=== PATIENT | female | born 1970 | race Caucasian/White ===

== ENCOUNTER 2023-04-18 06:18 | Emergency (ER) | payer BC, SELFPAY ==
[2023-04-18] VITALS (7 sets, daily range): BP systolic 128–149; BP diastolic 65–90; PULSE 103–112; RESP 14–20; TEMP 36.1–36.7; O2SAT 92–100
--- NOTE | ~2023-04-18 | US_ITS ---
EXAMINATION: US venous doppler LE RT DATE: 04/18/2023 09:14 INDICATION: Right lower limb pain and swelling TECHNIQUE: Canela scale images without and with compression and Doppler images of the right lower extre mity veins were obtained. COMPARISON: None FINDINGS: The right common femoral vein, profunda femoral vein, femoral vein, popliteal vein, and gre ater saphenous vein are patent. There is limited evaluation of the right posterior tibial and peronea l veins of the grossly no thrombosis is identified. IMPRESSION: 1. Patent right lower extremity veins. Grossly no evidence of deep venous thrombosis. Reviewed, dictated and finalized at location F. CART ATTENDANT IMPRESSION: 1. Patent right lower extremity veins. Grossly no evidence of deep venous throm bosis.
--- NOTE | 2023-04-18 06:54 | PC.NURSE ---
Patient states that he has a hx of cva and has weakness to right side. Patient states she does not have any sensation of numbness, tingling, or pins.
--- NOTE | 2023-04-18 07:17 | ECG_ITS ---
Measurements Intervals [place] Rate: 105 P: 56 IN: 160 QRS: -7 QRSD: 85 T: 75 QT: 357 QTc: 474 Interpretive Statements SINUS TACHYCARDIA LOW QRS VOLTAGE IN PRECORDIAL LEADS NONSPECIFIC ST & T-WAVE ABNORMALITY Electronically Signed On 04-19-2023 10:19:14 CONDITIONING COACH by Salvador Vivar M.D.
--- NOTE | 2023-04-18 07:37 | ED.GENADULT ---
HPI - General Adult General Chief complaint: Unspecified Stated complaint: Right sided pain Time Seen by Provider: 04/18/23 06:54 History of Present Illness HPI narrative: This is a 52-year-old female, with history of stroke resulting in right-sided deficits and complex pain syndrome, who presents to the emergency department complaining of pain in the right side of her body. She states she has chronic right lower extremity swelling, though has felt worsening pain in the past day. She has no other complaints at this time. Related Data Allergies Allergy/AdvReac Type Severity Reaction Status Date / Time vancomycin Allergy Swelling Verified 04/18/23 07:18 Review of Systems Review of Systems: CONSTITUTIONAL: Denies fever, chills, or sweats. CARDIOVASCULAR: Chronic right leg edema Denies chest pain, palpitations RESPIRATORY: Denies cough or dyspnea. GASTROINTESTINAL: Denies abdominal pain, nausea, vomiting, or diarrhea. GENITOURINARY: Denies dysuria or hematuria. SKIN: Denies rash or itching. MUSCULOSKELETAL: Chronic right-sided pain Denies back pain, joint pain NEUROLOGIC: Chronic right-sided weakness Denies headache, numbness, dizziness. PSYCHIATRIC: Denies anxiety or depression. [facility] Past Medical History Medical History Complex regional pain syndrome CVA (cerebrovascular accident) Surgical History Surgical History No significant past surgical history Social History Social History Smoking status: Never smoker Alcohol intake: never Substance use: never Exam Narrative: GENERAL: Well-appearing, well-nourished, appears uncomfortable HEAD: Normocephalic, atraumatic. EYES: PERRLA and EOMI. CHEST: Clear to auscultation. No respiratory distress. No wheezes rales or rhonchi HEART: tachycardic with regular rhythm. No murmur heard. Normal peripheral pulses. ABDOMEN: Soft, nontender, nondistended, normal active bowel sounds. EXTREMITIES: 2+ edema of the right lower extremity, no noted edema of the left lower extremity. The right leg is in a brace for foot drop. Normal range of motion. SKIN: erythema and small amount skin abrasion is noted over the sacrum, measuring approximately 7 cm in diameter consistent with stage I pressure ulcer. Skin otherwise warm, dry, no rash. NEURO: right-sided paralysis. Strength intact in the left upper and lower extremities. Alert and oriented x3. PSYCH: Normal mood and affect. Course Course Emergency Course: 12:15 - The patient's pain improved after morphine, pain dose ketamine and Toradol. Labs demonstrate mild anemia with hemoglobin of 11.2. Chemistries demonstrate mild hypokalemia with potassium of 3 but is otherwise unremarkable. Troponin negative. DVT ultrasound of the right lower extremity not concerning for DVT. I suspect the patient's pain is related to complex regional pain syndrome. Her exam is concerning stage I pressure ulcer. I discussed wound care management with her family. Will discharge with recommendation for primary care follow-up and possible wound care consultation. Discussed return and emergency precautions including signs/symptoms of cellulitis. The patient voiced understanding and is comfortable with the plan. All questions answered to her satisfaction. Vital Signs Vital signs: Vital Signs Temperature 97.0 F L 04/18/23 06:22 Pulse Rate 108 H 04/18/23 06:22 Respiratory Rate 20 04/18/23 06:22 Blood Pressure 128/74 04/18/23 06:22 Pulse Oximetry 98 04/18/23 06:22 Oxygen Delivery Room Air 04/18/23 06:22 Temperature 98.1 F 04/18/23 06:52 Pulse Rate 108 H 04/18/23 12:36 Respiratory Rate 20 04/18/23 12:36 Blood Pressure 148/65 H 04/18/23 12:36 Pulse Oximetry 99 04/18/23 12:36 Oxygen Delivery Room Air 04/18/23 06:22 Medical Decision Making
[2023-04-18] MEDS: MORPHINE SULFATE (*CRX) 4 MG/ML INJ IV PUSH ×2 (08:06→11:02)
[2023-04-18] MEDS: SODIUM CHLORIDE 0.9% IV 1,000 ML 999 ML IV CONT (08:07)
[2023-04-18 08:20] LABS: Basophils Percent Auto 0.4 % (0.2-1.2); Eosinophils Absolute Auto 0.1 K/mm3 (0-0.3); Eosinophils Percent Auto 1.1 % (0-4.4); Hematocrit 34.8 % (37.0-47.0); Hemoglobin 11.2 g/dL (12.0-15.0); Immature Granulocyte Absolute 0.01 K/mm3 (0.00-0.031); Immature Granulocyte Percent A 0.2 % (0-0.5); Lymphocytes Absolute Auto 0.93 K/mm3 (0.9-3.2); Lymphocytes Percent Auto 16.8 % (18.3-44.2); Mean Corpuscular HGB Conc 32.2 g/dl (32-36); Mean Corpuscular Hemoglobin 28.1 pg (26-34); Mean Corpuscular Volume 87.2 fl (80-100); Mean Platelet Volume 9.6 fl (7.4-10.4); Monocytes Absolute Auto 0.5 K/mm3 (0.1-0.6); Neutrophils Percent Auto 72.5 % (45.5-73.1); Platelet Count Result 271 k/mm3 (150-375); Red Blood Count 3.99 M/mm3 (4.2-5.4); Red Cell Distribution Width 12.3 % (11.5-14.5); White Blood Count 5.6 K/mm3 (4.5-10.0)
[2023-04-18 08:28] LABS: Alanine Aminotransferase 55 U/L (6-35); Albumin Level 3.8 g/dL (3.5-5.1); Alkaline Phosphatase 74 U/L (38-126); Anion Gap 10 mmol/L (8-16); Aspartate Amino Transferase 42 U/L (14-36); Bilirubin,Total 1.2 mg/dL (0.2-1.3); Blood Urea Nitrogen 43 mg/dL (7-17); Calcium 10.7 mg/dL (8.4-10.2); Carbon Dioxide 27 mmol/L (22-30); Chloride 102 mmol/L (98-107); Estimated CRCL calculation 72 ml/min; Estimated Glomerular Filt Rate 58; Glucose 127 mg/dL (65-110); Sodium 139 mmol/L (137-145)
[2023-04-18] MEDS: POTASSIUM CHLORIDE 20 MEQ PACKET (FOR LIQUID) 40 MEQ PO (08:38)
[2023-04-18 08:40] LABS: Troponin I < 0.012 ng/mL (0.000-0.034)
[2023-04-18] MEDS: KETAMINE HCL (*CRX) 500 MG/10 ML VIAL 20 MG IV PUSH (08:49)
--- NOTE | 2023-04-18 08:51 | PC.NURSE ---
u/s at bedside at this time
[2023-04-18] MEDS: KETOROLAC 30 MG/ML VIAL (*BKC) IV PUSH (11:02)
== END 2023-04-18 12:49 | disposition home or self-care (01) ==
PROVIDERS: Emergency Provider Preventive Medicine Aerospace Medicine
DX: G90.59 Complex regional pain syndrome I of other specified site (principal)
CPT/HCPCS: 36415; 80053; 84484; 85025; 93005; 93971; 96361; 96374; 96375; 96376; 99284; A9270; J1885; J2270; J7030

== ENCOUNTER 2024-01-13 12:55 | Emergency (ER) | payer OTHER, SELFPAY ==
--- NOTE | ~2024-01-13 | XR_ITS ---
EXAMINATION: XR shoulder RT min 2V DATE: 01/13/2024 14:44 INDICATION: Patient awoke with limited range of motion at the right shoulder and feeling similar to d uring a recent prior shoulder dislocation. TECHNIQUE: AP internally and externally rotated, AP oblique externally rotated and transscapular Y vi ews of the right shoulder were obtained. COMPARISON: None FINDINGS: Normal alignment. Partially visualized plate and screw fixation along the distal right humeral diaphy sis reportedly for recent fracture which is not included within the [id number]. No other fractures identified. Glenohumeral mild glenohumeral and acromioclavicular osteoarthritis. Visualized portions of the right lung are clear. Soft tissues are unremarkable. IMPRESSION: 1. Mild right glenohumeral and acromioclavicular osteoarthritis. No acute osseous abnormality. 2. Incompletely visualized plate and screw fixation of the distal right humeral diaphysis reportedly for recent fracture which is not included within the field of imaging. Reviewed, dictated and finalized at location A. IMPRESSION: 1. Mild right glenohumeral and acromioclavicular osteoarthritis. No acute osseo us abnormality. 2. Incompletely visualized plate and screw fixation of the distal right humeral diaphysis reportedly for recent fracture which is not included within the fiel d of imaging.
[2024-01-13 13:00] VITALS: BP 145/63; PULSE 80; RESP 16; TEMP 36.5; O2SAT 98
--- NOTE | 2024-01-13 15:07 | ED.UPPEXIN ---
HPI - Extremity Injury (Upper) General Chief Complaint: Extremity Injury, Upper Stated Complaint: R shoulder pain Time Seen by Provider: 01/13/24 15:07 History of Present Illness HPI narrative: 53-year-old female presents to the emergency department with concerns for right shoulder dislocation. Patient states she woke up this morning and noticed a deformity to her right shoulder which prompted her to come to the ED. She was seen a few weeks ago in our ER for a right shoulder dislocation which was reduced. It was complicated by a humeral fracture. Patient went to [facility] and had a surgery performed 10 days ago for this humeral fracture. She has been in a sling since. She denies injury or trauma to her right shoulder. Related Data Allergies Allergy/AdvReac Type Severity Reaction Status Date / Time vancomycin Allergy Swelling Verified 01/13/24 12:56 digoxin AdvReac Other Verified 01/13/24 12:57 Review of Systems Review of Systems: All systems reviewed & are unremarkable except as noted in HPI and below PMFSH Past Medical History Medical History Complex regional pain syndrome CVA (cerebrovascular accident) Surgical History Surgical History No significant past surgical history Social History Social History Smoking status: Never smoker Alcohol intake: never Substance use: never Exam Narrative: GENERAL: Well-appearing, well-nourished, and in no acute distress. HEAD: Normocephalic, atraumatic. NECK: Supple. CHEST: Clear to auscultation. No respiratory distress. HEART: Regular rate and rhythm. No murmur heard. Normal peripheral pulses. EXTREMITIES: Right shoulder with tenderness throughout the shoulder joint and prominent humeral head head anteriorly which may be dislocated. Postoperative incision to the distal humerus and right elbow with overlying Steri-Strips, minimally visualized but areas that are visualized seems to be healing well without evidence of secondary postoperative infection. Radial pulses 2+. Sensation intact throughout. Median, medial and ulnar nerves are intact, however strength is decreased secondary to hemiparesis from prior CVA SKIN: Warm, dry, no rash. NEURO: No focal deficits. Alert and oriented x3 Course Vital Signs Vital signs: Vital Signs Temperature 97.7 F 01/13/24 13:00 Pulse Rate 80 01/13/24 13:00 Respiratory Rate 16 01/13/24 13:00 Blood Pressure 145/63 H 01/13/24 13:00 Pulse Oximetry 98 01/13/24 13:00 Oxygen Delivery Room Air 01/13/24 13:00 Temperature 97.7 F 01/13/24 13:00 Pulse Rate 80 01/13/24 13:00 Respiratory Rate 16 01/13/24 13:00 Blood Pressure 145/63 H 01/13/24 13:00 Pulse Oximetry 98 01/13/24 13:00 Oxygen Delivery Room Air 01/13/24 13:00 MDM - Extremity Injury (Upper) MDM Narrative Medical decision making narrative: 53-year-old female presents to the emergency department with concerns for right shoulder spontaneous dislocation. No injury trauma, woke up with deformity to right shoulder. Vitals are stable. Exam is significant for prominent humeral head that seems to be pushing anteriorly when compared to the left shoulder. Tenderness to throughout the right shoulder and postoperative incision to the right elbow which seems to be healing well. She does have weakness to right extremity which is chronic from prior CVA, otherwise is neurovascularly intact. X-ray of the shoulder shows no abnormalities or evidence of dislocation. I did confirm these findings with the radiologist given her proximal humerus does appear to be different when compared to her left on exam. He confirms that there is no evidence of dislocation. I discussed this with the patient. I suspect the displacement of the proximal humerus may be secondary to a shoulder joint effusion ashkan
== END 2024-01-13 15:11 ==
PROVIDERS: Emergency Provider Physician Assistant; PCP Family Medicine
DX: M25.511 Pain in right shoulder (principal); Z86.73 Personal history of transient ischemic attack (TIA), and cerebral infarction without residual deficits
CPT/HCPCS: 73030; 99283

== ENCOUNTER 2024-01-13 23:51 | Inpatient (IN) | payer OTHER, SELFPAY ==
--- NOTE | ~2024-01-13 | US_ITS ---
EXAMINATION: US venous doppler UE RT DATE: 01/14/2024 18:36 INDICATION: Right upper limb swelling. TECHNIQUE: Grayscale ultrasound images without and with compression and Doppler ultrasound images of the right upper extremity veins were obtained. COMPARISON: None. FINDINGS: The visualized portions of the right internal jugular vein, subclavian vein, axillary vein, brachial veins, cephalic vein, radial vein, and ulnar vein are patent. IMPRESSION: 1. No deep venous thrombosis. Reviewed, dictated and finalized at location A.
--- NOTE | ~2024-01-13 | US_ITS ---
EXAMINATION: US venous doppler LE RT DATE: 01/15/2024 09:59 INDICATION: Persistent right lower limb swelling TECHNIQUE: Grayscale ultrasound images without and with compression and Doppler ultrasound images of the right lower extremity veins were obtained. COMPARISON: 04/18/2023 FINDINGS: The visualized portions of right common femoral vein, profunda (deep) femoral vein, femoral vein, pop liteal vein, peroneal trunk, posterior tibial veins, peroneal veins and greater saphenous vein outflo w are patent. IMPRESSION: 1. No deep venous thrombosis in the right lower limb. Reviewed, dictated and finalized at location A.
--- NOTE | ~2024-01-13 | CT_ITS ---
CT Scan of the Chest without Contrast: Clinical Indication: Dyspnea Technique: Contiguous sections were acquired throughout the chest without intravenous contrast. Dose reduction technique was used on this scan by utilizing automated exposure control and iterative recon struction technique. The dose-length product (DLP) was 266.02 mGy-cm. Findings: Probable enlarged thyroid gland with suggestion of subtle nodules. There is no evidence of any significant mediastinal, hilar or axillary lymphadenopathy. The mediastin al soft tissues appear normal. Minimal pericardial fluid present. Small bilateral pleural effusions are present, with mild bibasilar atelectatic change. Images through the upper abdomen reveal no abnormalities. Impression: Small bilateral pleural effusions with mild bibasilar atelectatic change. Minimal pericardial fluid. Enlarged thyroid gland, with suggestion of multiple nodules. Consider thyroid ultrasound and/or thyro id function testing, as indicated. Reviewed, dictated and finalized at [facility]. Impression: Small bilateral pleural effusions with mild bibasilar atelectatic change. Minimal pericardial fluid. Enlarged thyroid gland, with suggestion of multiple nodules. Consider thyroid u ltrasound and/or thyroid function testing, as indicated.
--- NOTE | ~2024-01-13 | XR_ITS ---
Portable chest x-ray Comparison: None Clinical History: Elevated BNP Findings: There is also hazy retrocardiac airspace disease. Right lung clear. Cardiomediastinal nora houette is stable. Bones and soft tissues are unremarkable. Impression: Suspected hazy retrocardiac airspace disease. Correlate for left lower lobe pneumonia versus atelecta sis. Reviewed, dictated and finalized at location . Impression: Suspected hazy retrocardiac airspace disease. Correlate for left lower lobe pne umonia versus atelectasis.
[2024-01-13 23:56] VITALS: BP 148/67; PULSE 100; RESP 16; TEMP 37.4; O2SAT 95
[2024-01-14] VITALS (31 sets, daily range): BP systolic 133–174; BP diastolic 65–93; PULSE 92–138; RESP 16–28; TEMP 36.8–37.2; O2SAT 90–98; BMI 24.9
--- NOTE | 2024-01-14 | ECHO_ITS ---
Patient Info Name: Shauna Wilson Age: 53 years : 1970 Gender: Female Ht: 66 in Wt: 154 lbs BSA: 1.81 m2 HR: 130 bpm BP: 146 / 87 mmHg Heart Rhythm: Atrial Fibrillation Technical Quality: Fair Exam Date: 01/14/2024 2:53 PM Exam Location: Echo Lab Patient Status: Inpatient Admit Date: 01/14/2024 Staff Ordering Physician: Cecy Sharif APRN Sales Order Clerk: Cecilia Arce RDCS Attending Provider: Carlos Suresh MD Referring Physician: Kole SOLARES; Exam Type: CA echo doppler color flow Study Info Indications R06.01 - Orthopnea - Elevated BNP Complete two-dimensional, color flow and Doppler transthoracic echocardiogram is performed. Summary 1. Complete two-dimensional, color flow and Doppler transthoracic echocardiogram is performed. 2. Left ventricular chamber dimension is normal. 3. Left ventricular systolic function is mildly reduced, estimated at 45-50%. 4. Left atrial chamber dimension is moderately enlarged. 5. There is mild mitral valve regurgitation. 6. The aortic valve is normal. 7. Atrial Fib. Left Ventricle Left ventricular chamber dimension is normal. Left ventricular systolic function is mildly reduced, estimated at 45-50%. The left ventricular diastolic function is indeterminate. Right Ventricle Right ventricular chamber dimension is normal. Left Atria Left atrial chamber dimension is moderately enlarged. Right Atria Right atrial chamber dimension is mildly enlarged. Aortic Valve The aortic valve is normal. Pulmonic Valve The pulmonic valve is not well visualized. Mitral Valve The mitral valve has normal leaflets. There is mild mitral valve regurgitation. Tricuspid Valve The tricuspid valve leaflets are normal. There is mild tricuspid valve regurgitation. Pericardium/Pleural There is trivial pericardial effusion. Aorta The aortic root size at the sinus of Valsalva is normal. Left Ventricular Outflow Tract Name Value Normal LVOT 2D LVOT Diameter 1.9 cm LVOT Doppler LVOT Peak Gradient 6 mmHg LVOT Mean Gradient 3 mmHg LVOT VTI 18 cm LVOT VTI/AV VTI Ratio 0.6 LVOT Stroke Volume 51 ml LVOT CO 6.8 l/min LVOT CI 3.7 l/min/m2 Pulmonic Valve Name Value Normal PV Doppler PV Peak Gradient 4 mmHg Mitral Valve Name Value Normal MV Doppler MV Decel [place] 1,547 cm/s2 MV PHT 30 ms MV Area (PHT) 7.3 cm2 4.0-5.0 MV Diastolic Function
--- NOTE | 2024-01-14 02:53 | PC.NURSE ---
Attempted to draw blood x 2 without success.
[2024-01-14 04:38] LABS: Basophils Percent Auto 0.2 % (0.2-1.2); Eosinophils Absolute Auto 0.5 K/mm3 (0-0.3); Eosinophils Percent Auto 5.6 % (0-4.4); Hemoglobin 9.5 g/dL (12.0-15.0); Immature Granulocyte Absolute 0.02 K/mm3 (0.00-0.031); Immature Granulocyte Percent A 0.2 % (0-0.5); Lymphocytes Absolute Auto 1.26 K/mm3 (0.9-3.2); Lymphocytes Percent Auto 14.7 % (18.3-44.2); Mean Corpuscular HGB Conc 31.7 g/dl (32-36); Mean Corpuscular Hemoglobin 30.1 pg (26-34); Mean Corpuscular Volume 94.9 fl (80-100); Mean Platelet Volume 9.2 fl (7.4-10.4); Monocytes Absolute Auto 0.5 K/mm3 (0.1-0.6); Monocytes Percent Auto 5.3 % (2.6-8.5); Neutrophils Absolute Auto 6.3 K/mm3 (1.3-6.7); Platelet Count Result 349 k/mm3 (150-375); Red Blood Count 3.16 M/mm3 (4.2-5.4); Red Cell Distribution Width 13.8 % (11.5-14.5); White Blood Count 8.6 K/mm3 (4.5-10.0)
[2024-01-14 04:49] LABS: Alanine Aminotransferase 23 U/L (6-35); Albumin Level 3.6 g/dL (3.5-5.1); Alkaline Phosphatase 77 U/L (38-126); Anion Gap 9 mmol/L (4-12); Aspartate Amino Transferase 41 U/L (14-36); Blood Urea Nitrogen 30 mg/dL (7-17); Carbon Dioxide 23 mmol/L (22-30); Chloride 102 mmol/L (98-107); Estimated CRCL calculation 66 ml/min; Estimated Glomerular Filt Rate > 60; Glucose 108 mg/dL (65-110); Potassium 4.2 mmol/L (3.4-5.0); Sodium 134 mmol/L (137-145)
[2024-01-14 06:24] LABS: Fractional Inspired Oxygen 21 %; HCO3 VBG 26.6 mEq/l (24.0-30.0); PCO2 VBG 42.6 mmHg (42.0-48.0); PO2 VBG < 27.0 mmHg (35.0-45.0); pH VBG 7.414 (7.300-7.400)
[2024-01-14 06:25] LABS: Device ROOM AIR
[2024-01-14 06:56] LABS: Troponin I 0.019 ng/mL (0.000-0.034)
[2024-01-14 06:58] LABS: NT Pro B Type Natriuretic Pept 6350 pg/mL (19.9-100)
--- NOTE | 2024-01-14 07:00 | ED.GENADULT ---
HPI - General Adult General Chief complaint: Recheck/Abnormal Lab/Rx Stated complaint: abnormal labs Time Seen by Provider: 01/14/24 05:28 This is a 53-year-old female presenting ED with chief complaint of abnormal labs. Presenting for an elevated BNP. Patient says that she has been having sore throat cough shortness of breath for the last 4-5 hours. She has also noted she has been having subjective fevers and chills but has not taken her temperature. She notes that she cannot lay flat at night. Patient also has developed significant swelling of her right arm and right leg. Patient is paralyzed on the right side from a prior CVA but does not typically have this much swelling. Patient is on Coumadin for atrial fibrillation. Related Data Home Medications Medication Instructions Recorded Confirmed albuterol sulfate 90 mcg/actuation 2 puff inhalation Q6H PRN 01/14/24 01/14/24 aerosol inhaler Shortness Of Breath amiodarone 100 mg tablet 100 mg PO DAILY 01/14/24 01/14/24 amlodipine 5 mg tablet 5 mg PO DAILY 01/14/24 01/14/24 atorvastatin 40 mg tablet 40 mg PO QHS 01/14/24 01/14/24 baclofen 20 mg tablet 20 mg PO TID 01/14/24 01/14/24 carvedilol 6.25 mg tablet 6.25 mg PO BID 01/14/24 01/14/24 fluoxetine 20 mg capsule (Prozac) 20 mg PO DAILY 01/14/24 01/14/24 metformin 500 mg tablet See Rx Instructions .Route .COMPLEX 01/14/24 01/14/24 trazodone 150 mg tablet 75 mg PO QHS 01/14/24 01/14/24 warfarin 5 mg tablet 5 mg PO DAILY 01/14/24 01/14/24 Allergies Allergy/AdvReac Type Severity Reaction Status Date / Time barrington Allergy Itching Verified 01/14/24 11:20 melon Allergy Itching Verified 01/14/24 11:20 vancomycin Allergy Swelling Verified 01/13/24 12:56 digoxin AdvReac Other Verified 01/13/24 12:57 [facility] Past Medical History Medical History (Updated 01/15/24 @ 12:01 by WALKER Recinos) Anxiety and depression Asthma Atrial fibrillation Complex regional pain syndrome CVA (cerebrovascular accident) Diabetes Endometrial cancer s/p hysterectomy Hyperlipidemia Hypertension Hyperthyroidism Hypokalemia Hypothyroidism Surgical History Surgical History History of hysterectomy History of orthopedic surgery Humerus, 2021 Family History Family History Father Diabetes mellitus Hypertension Mother Breast cancer Grandparent Lung cancer Cerebrovascular accident Sibling Cerebrovascular accident Social History Social History Smoking status: Never smoker Alcohol intake: never Substance use: never Do You Feel Safe in your Home?: Yes Lack of Transportation: No Lack of Food: Never True Current Housing: I Have Housing Concerned About Future Housing: No Difficulty Paying Gas/Electric Bills: No Difficulty Paying for Meds: No Currently Unemployed: No Education: Bachelor's Degree Difficulty w/ Childcare or Family Care: No Spiritual care concerns: No Exam Narrative: APPEARANCE: No apparent distress. Head: atraumatic. EYES: EOMI, NOSE: Atraumatic NECK: Trachea midline RESPIRATORY: Scattered crackles, low 90s on room air CARDIOVASCULAR: RRR, pitting edema of the right lower extremity and swelling of the right arm ABDOMINAL: Non-distended MUSCULOSKELETAl: Right arm is in a sling from a recent humerus repair NEURO: Alert. Weakness and limited function of the right arm and right leg SKIN:: Warm, dry. Normal color PSYCHIATRIC: Normal affect Course Vital Signs Vital signs: Vital Signs Temperature 99.3 F 01/13/24 23:56 Pulse Rate 100 01/13/24 23:56 Respiratory Rate 16 01/13/24 23:56 Blood Pressure 148/67 H 01/13/24 23:56 Pulse Oximetry 95 01/13/24 23:56 Oxygen Delivery Room Air 01/13/24 23:56 Temperature 97.4 F L 01/18/24 08:38 Pulse Rate 88 01/18/24 08:39 Respiratory R
[2024-01-14 07:02] LABS: Partial Thromboplastin Time 41.4 Seconds (22.3-36.8)
--- NOTE | 2024-01-14 07:04 | ECG_ITS ---
Test Date: 2024-01-14 07:47:47 Measurements Intervals [place] Rate: 92 P: 65 MS: 145 QRS: 44 QRSD: 92 T: 70 QT: 376 QTc: 466 Interpretive Statements SINUS RHYTHM POSSIBLE LEFT ATRIAL ENLARGEMENT BORDERLINE ST-T WAVE ABNORMALITY- DIFFUSE LEADS BASELINE ARTIFACT- I, II, III, AVR, AVL, AVF, V1-V6 BORDERLINE ECG No previous ECG available for comparison Electronically Signed On 01-14-2024 08:18:18 CDT by Chuy Culp D.O.
[2024-01-14 07:08] LABS: Add Urine Microscopic? NO; Appearance Urine Clear (Clear); Bilirubin Urine Negative (Negative); Blood Urine Negative (Negative); Color Urine Yellow (Yellow); Glucose Urine UA Negative (Negative); Ketones Urine Negative (Negative); Leukocyte Esterase Ur Negative LEU/UL (Negative); Nitrate Urine Negative (Negative); Protein Urine Negative (Negative); Specific Grav Ur 1.016 (1.001-1.035); Urobilinogen Urine 0.2 mg/dL (<2.0)
[2024-01-14 07:13] LABS: Influenza A QL RT-PCR Negative (Negative); Influenza B QL RT-PCR Negative (Negative); RSV RNA, RT-PCR Negative (Negative); SARS-CoV-2 RNA PCR Negative (Negative)
--- NOTE | 2024-01-14 07:14 | PC.NURSE ---
report given to Merary BETANCOURT and Brittany BETANCOURT at this time. Pt resting with call light within reach.
[2024-01-14 07:27] LABS: INR 2.2; Prothrombin Time 24.4 Seconds (11.1-14.7)
[2024-01-14] MEDS: FUROSEMIDE INJ 40 MG/4 ML VIAL IV PUSH (07:44)
--- NOTE | 2024-01-14 08:34 | ECG_ITS ---
Test Date: 2024-01-14 09:11:51 Measurements Intervals [place] Rate: 131 P: 0 RI: 0 QRS: 49 QRSD: 93 T: 0 QT: 216 QTc: 319 Interpretive Statements ATRIAL FIBRILLATION WITH RAPID VENTRICULAR RESPONSE NONSPECIFIC ST & T-WAVE ABNORMALITY- DIFFUSE LEADS ABNORMAL ECG Compared to ECG 01/14/2024 07:47:47 ATRIAL FIBRILLATION NOW PRESENT Electronically Signed On 01-14-2024 09:36:54 CDT by Chuy Culp D.O.
[2024-01-14] MEDS: METOPROLOL TARTRATE INJ 5 MG/5 ML VIAL IV PUSH ×2 (09:25→09:58)
--- NOTE | 2024-01-14 09:40 | PC.NURSE ---
DR. YO MADE AWARE OF PERSISTENT ELEVATED HEART RATE. ADDITIONAL METOPROLOL TO BE ORDERED.
[2024-01-14] MEDS: METOPROLOL TARTRATE 25 MG TABLET PO (09:59)
--- NOTE | 2024-01-14 11:10 | ADMGEN ---
This patient, Shauna Wilson, was admitted to 2 Medical Room 249-01. Patient/family oriented to hospital policies and general routines including ID bracelet, bed and alarms, visiting hours, pain management, procedures, bathroom and other care routines, personal items, smoking policy, room service/diet, and visiting hours. Information on how to activate the Rapid Response Team has been discussed. Patient/Family are encouraged to report perceived risks to care and to ask questions if they do not understand what they are told or what they should do.
--- NOTE | 2024-01-14 12:18 | PM.IMHP ---
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 The patient presents here from [facility] via EMS for further evaluation of elevated BNP. Patient reports that she began feeling unwell late last night/early this morning. Endorsing shortness of breath, nonproductive cough, sore throat, subjective fevers, and chills. Patient did not take her temp at facility. She reports the shortness of breath worsens with lying flat and is accompanied by edema to the RUE and RLE. Patient does have residual deficits (paralysis) on the right due to previous CVA. Patient however does not typically have any edema to the right side at baseline. First noticed the swelling on the right while hospitalized at [facility] for a fx in her right arm with dislocation 2 weeks ago. Patient is on Warfarin. Patient denies accompanying chest pain, dizziness, diaphoresis, nausea, or vomiting. Initial VS at presentation: 99.3? F, HR 100, RR 16, 148/67, and 95% on RA. ED workup showed: No leukocytosis, hemoglobin 9.5 (previously 11.2 in 2022, did have recent surgery), INR 2.2, sodium 134, creatinine 0.8 and GFR >60, initial troponin 0.012, BNP use 6350, and UA unremarkable. Viral PCR negative. CXR showed suspected hazy retrocardiac airspace disease correlate with left lower lobe pneumonia versus atelectasis. Chest CT showed small bilateral pleural effusions, minimal pericardial fluid, and enlarged thyroid gland with suggestion of multiple nodules. Review of Systems Review of Systems: All systems reviewed & are unremarkable except as noted in HPI and below [facility] Past Medical History Medical History (Updated 01/14/24 @ 16:33 by Cecy Sharif APRN) Anxiety and depression Asthma Atrial fibrillation Complex regional pain syndrome CVA (cerebrovascular accident) Diabetes Endometrial cancer s/p hysterectomy Hyperlipidemia Hypertension Surgical History Surgical History History of hysterectomy History of orthopedic surgery , 2021 Family History Family History Father Diabetes mellitus Hypertension Mother Breast cancer Grandparent Lung cancer Cerebrovascular accident Sibling Cerebrovascular accident Social History Social History Smoking status: Never smoker Alcohol intake: never Substance use: never Do You Feel Safe in your Home?: Yes Lack of Transportation: No Lack of Food: Never True Current Housing: I Have Housing Concerned About Future Housing: No Difficulty Paying Gas/Electric Bills: No Difficulty Paying for Meds: No Currently Unemployed: No Education: Bachelor's Degree Difficulty w/ Childcare or Family Care: No Spiritual care concerns: No Meds Home Medications and Allergies Home Medications Medication Instructions Recorded Confirmed Type albuterol sulfate 90 mcg/actuation 2 puff inhalation Q6H PRN 01/14/24 01/14/24 History aerosol inhaler Shortness Of Breath amiodarone 100 mg tablet 100 mg PO DAILY 01/14/24 01/14/24 History amlodipine 5 mg tablet 5 mg PO DAILY 01/14/24 01/14/24 History atorvastatin 40 mg tablet 40 mg PO QHS 01/14/24 01/14/24 History baclofen 20 mg tablet 20 mg PO TID 01/14/24 01/14/24 History carvedilol 6.25 mg tablet 6.25 mg PO BID 01/14/24 01/14/24 History fluoxetine 20 mg capsule (Prozac) 20 mg PO DAILY 01/14/24 01/14/24 History metformin 500 mg tablet See Rx Instructions .Route .COMPLEX 01/14/24 01/14/24 History trazodone 150 mg tablet 75 mg PO QHS 01/14/24 01/14/24 History warfarin 5 mg tablet 5 mg PO DAILY 01/14/24 01/14/24 History Allergies Allergy/AdvReac Type Se
[2024-01-14 14:03] LABS: Troponin I 0.012 ng/mL (0.000-0.034)
[2024-01-14] MEDS: AZITHROMYCIN 500 MG/NS 250 ML 500 MG/250 ML BAG 250 MG IVPB (14:13)
[2024-01-14] MEDS: COLLAGENASE OINT 30 GM TUBE 1 APPLIC TOPICAL (16:05)
[2024-01-14] MEDS: BACLOFEN 10 MG TABLET 20 MG PO (17:10)
[2024-01-14] MEDS: WARFARIN (*PBKC) 5 MG TABLET PO (17:10)
[2024-01-14] MEDS: AMIODARONE HCL 100 MG TABLET PO (17:11)
[2024-01-14 17:21] LABS: MRSA (PCR) NOT DETECTED (NOT DETECTE)
[2024-01-14] MEDS: ALBUTEROL SULFATE (*SP) AEROSOL 1 PUFF 2 PUFF INHALATION (17:47)
[2024-01-14 17:48] LABS: Glucose Point of Care 168 mg/dl (65-105)
[2024-01-14 21:20] LABS: Glucose Point of Care 120 mg/dl (65-105)
[2024-01-14] MEDS: traZODone HCL 25 MG TABLET 75 MG PO (21:25)
[2024-01-14] MEDS: ATORVASTATIN 40 MG TABLET PO (21:25)
[2024-01-14] MEDS: carvediloL 6.25 MG TABLET PO (21:26)
[2024-01-15] VITALS (13 sets, daily range): BP systolic 127–134; BP diastolic 59–76; PULSE 82–121; RESP 16–20; TEMP 36.5–36.9; O2SAT 95–99; BMI 24.7
[2024-01-15] MEDS: ALBUTEROL SULFATE (*SP) AEROSOL 1 PUFF 2 PUFF INHALATION ×2 (05:45→12:34)
[2024-01-15 06:45] LABS: Basophils Percent Auto 0.5 % (0.2-1.2); Eosinophils Absolute Auto 0.2 K/mm3 (0-0.3); Eosinophils Percent Auto 5.2 % (0-4.4); Hematocrit 27.8 % (37.0-47.0); Hemoglobin 8.4 g/dL (12.0-15.0); Immature Granulocyte Absolute 0.01 K/mm3 (0.00-0.031); Immature Granulocyte Percent A 0.2 % (0-0.5); Lymphocytes Absolute Auto 0.97 K/mm3 (0.9-3.2); Mean Corpuscular HGB Conc 30.2 g/dl (32-36); Mean Corpuscular Hemoglobin 28.7 pg (26-34); Mean Corpuscular Volume 94.9 fl (80-100); Monocytes Absolute Auto 0.4 K/mm3 (0.1-0.6); Monocytes Percent Auto 8.3 % (2.6-8.5); Neutrophils Absolute Auto 2.7 K/mm3 (1.3-6.7); Neutrophils Percent Auto 62.8 % (45.5-73.1); Platelet Count Result 296 k/mm3 (150-375); Red Blood Count 2.93 M/mm3 (4.2-5.4); Red Cell Distribution Width 13.6 % (11.5-14.5); White Blood Count 4.2 K/mm3 (4.5-10.0)
[2024-01-15 06:57] LABS: INR 1.7; Prothrombin Time 20.1 Seconds (11.1-14.7)
[2024-01-15 07:02] LABS: Alanine Aminotransferase 19 U/L (6-35); Albumin Level 2.8 g/dL (3.5-5.1); Alkaline Phosphatase 94 U/L (38-126); Anion Gap 6 mmol/L (4-12); Aspartate Amino Transferase 25 U/L (14-36); Bilirubin,Total 0.5 mg/dL (0.2-1.3); Blood Urea Nitrogen 21 mg/dL (7-17); Calcium 8.7 mg/dL (8.4-10.2); Carbon Dioxide 32 mmol/L (22-30); Chloride 101 mmol/L (98-107); Estimated CRCL calculation 59 ml/min; Estimated Glomerular Filt Rate > 60; Glucose 112 mg/dL (65-110); Potassium 2.6 mmol/L (3.4-5.0); Sodium 139 mmol/L (137-145)
[2024-01-15 07:37] LABS: Thyroid Stimulating Hormone Reflex < 0.015 uIU/mL (0.465-4.68)
[2024-01-15 07:58] LABS: Glucose Point of Care 107 mg/dl (65-105)
[2024-01-15] MEDS: AZITHROMYCIN 500 MG/NS 250 ML 500 MG/250 ML BAG 250 MG IVPB (08:22)
[2024-01-15] MEDS: BACLOFEN 10 MG TABLET 20 MG PO ×3 (08:43→16:23)
[2024-01-15] MEDS: amLODIPine BESYLATE 5 MG TABLET PO (08:43)
[2024-01-15] MEDS: POTASSIUM CHLORIDE 20 MEQ ER TABLET 40 MEQ PO (08:43)
[2024-01-15] MEDS: FUROSEMIDE INJ 40 MG/4 ML VIAL IV PUSH (08:43)
[2024-01-15] MEDS: FLUoxetine HCL 20 MG CAPSULE PO (08:44)
[2024-01-15] MEDS: AMIODARONE HCL 100 MG TABLET PO (08:44)
[2024-01-15] MEDS: COLLAGENASE OINT 30 GM TUBE 1 APPLIC TOPICAL (08:44)
[2024-01-15] MEDS: carvediloL 6.25 MG TABLET PO ×2 (08:44→20:33)
[2024-01-15] MEDS: POTASSIUM CHLORIDE INJ 40 MEQ in SODIUM CHLORIDE 0.9% IV 500 ML 130 MEQ IVPB (09:56)
--- NOTE | 2024-01-15 11:46 | PM.IMPN ---
Progress Note: A&P Assessment and Plan (1) Shortness of breath: Code(s): R06.02 - Shortness of breath Status: Acute Assessment and Plan: - chest CT: Small bilateral pleural effusions with mild bibasilar atelectatic change. Minimal pericardial fluid. Enlarged thyroid gland, with suggestion of multiple nodules. Consider thyroid ultrasound and/or thyroid function testing, as indicated. - CXR: Suspected hazy a retro cardiac airspace disease, correlate for lower lobe pneumonia versus atelectasis. - upon my review of CT, small consolidation to left lower lobe. given patient is symptomatic (subjective fevers, cough, shortness of breath) will start CPAP treatment, ceftriaxone azithromycin on 01/13. did not meet SIRS criteria (HR only). will add MRSA PCR given patient is [place] resident. follow BC. - suspect SOB is multifactorial: CHF and PNA 01/15/24: Continue Rocephin and Azithromycin. Continue Lasix 40 mg IVP Daily. (2) Elevated brain natriuretic peptide (BNP) level: Code(s): R79.89 - Other specified abnormal findings of blood chemistry Status: Acute Assessment and Plan: - BNP 6350 - no echo on file, ordered - not on diuretic, will start Lasix 40 mg IVP daily - daily weights and monitor I&Os - trend renal function 01/15/24: ECHO 01/14/24 showing mildly reduces LVSF w/EF of 45-50%. LVDF is indeterminate. Continue Lasix 40 mg IVP daily Monitor labs and VS. Pt still appears to be hypervolemic with BLE edema, R>L (3) Atrial fibrillation: Qualifiers: Atrial fibrillation type: unspecified Qualified Code(s): I48.91 - Unspecified atrial fibrillation Code(s): I48.91 - Unspecified atrial fibrillation Status: Acute Assessment and Plan: - EKG, initial: Sinus rhythm, rate 92, possible left atrial enlargement, borderline ST-T-wave abnormality diffuse leads, baseline artifact. - EKG, repeat (1): AFib RVR, rate 131, nonspecific ST and T-wave abnormality diffuse leads. When compared to EKG done earlier today there is AFib now present. - Troponin: 0.019 -> 0.012 - rate controlled post metoprolol IVP and oral doses, heart rate remains 100-115. Will give home amiodarone dose now, did not take this morning due to being at the emergency department. - home medications: Amiodarone 100 mg daily - telemetry monitoring 01/15/24: Continue tele. Continue meds for rate control and rhythm Continue Coumadin for anticoagulation (4) Edema of extremity: Code(s): R60.0 - Localized edema Status: Acute Assessment and Plan: - recent dislocation to right shoulder, during reduction patient had fracture of right humerus. Reports she had to have surgery at [facility] approximately 2 weeks ago. Right upper extremity has been swollen since then, patient is on Eliquis. However will order ultrasound of the RUE after shared decision making with patient. - patient also having it right lower extremity edema, reports that has been present since her shoulders location. The patient had ultrasound done of RLE at [facility], will request records. - continue Eliquis - DVT verses peripheral edema secondary to suspected new CHF 01/15/24: Pt continues to have RLE edema R>L. She had negative dopplers there a couple of weeks ago, but has been mostly sedentary since. Repeat Venous doppler RLE to rule out DVT. Continue diuresis. (5) Diabetes: Qualifiers: Diabetes mellitus type: type 2 Diabetes mellitus termite control servicer insulin use: without termite control servicer use Diabetes mellitus complication status: without complication Qualified Code(s): E11.9 - Type 2 diabetes mellitus without complications Code(s): E11.9 - Type 2 diabetes mellitus without complications Status: Chronic Assessment and Plan: - hypoglycemia protocol - POC blood glucose ACHS - home medication: Hold metformin - correct regimen ordered - low dose TIDWM - A1C ordered, no previous on file 01/15/24: Laisha
[2024-01-15 11:47] LABS: Free T4 Free Thyroxine Reflex 5.16 ng/dL (0.78-2.19)
[2024-01-15 12:32] LABS: Glucose Point of Care 128 mg/dl (65-105)
[2024-01-15 13:12] LABS: Hemoglobin A1C 4.6 % (<5.7)
[2024-01-15] MEDS: ACETAMINOPHEN 325 MG TABLET 650 MG PO (15:05)
[2024-01-15] MEDS: WARFARIN (*PBKC) 5 MG TABLET PO (16:23)
[2024-01-15 16:45] LABS: Glucose Point of Care 122 mg/dl (65-105)
[2024-01-15] MEDS: traZODone HCL 25 MG TABLET 75 MG PO (20:31)
[2024-01-15] MEDS: ATORVASTATIN 40 MG TABLET PO (20:32)
[2024-01-16] VITALS (12 sets, daily range): BP systolic 128–148; BP diastolic 62–73; PULSE 76–88; RESP 16–20; TEMP 36.4–37.2; O2SAT 95–100
[2024-01-16 04:59] LABS: Basophils Percent Auto 0.3 % (0.2-1.2); Eosinophils Absolute Auto 0.3 K/mm3 (0-0.3); Eosinophils Percent Auto 7.4 % (0-4.4); Hematocrit 27.1 % (37.0-47.0); Hemoglobin 8.4 g/dL (12.0-15.0); Immature Granulocyte Absolute 0.01 K/mm3 (0.00-0.031); Immature Granulocyte Percent A 0.3 % (0-0.5); Lymphocytes Absolute Auto 0.96 K/mm3 (0.9-3.2); Lymphocytes Percent Auto 28.4 % (18.3-44.2); Mean Corpuscular Hemoglobin 29.7 pg (26-34); Mean Corpuscular Volume 95.8 fl (80-100); Mean Platelet Volume 9.2 fl (7.4-10.4); Monocytes Absolute Auto 0.3 K/mm3 (0.1-0.6); Monocytes Percent Auto 9.8 % (2.6-8.5); Neutrophils Absolute Auto 1.8 K/mm3 (1.3-6.7); Neutrophils Percent Auto 53.8 % (45.5-73.1); Platelet Count Result 265 k/mm3 (150-375); Red Blood Count 2.83 M/mm3 (4.2-5.4); Red Cell Distribution Width 13.5 % (11.5-14.5); White Blood Count 3.4 K/mm3 (4.5-10.0)
[2024-01-16 05:04] LABS: INR 1.8
[2024-01-16 05:05] LABS: Alanine Aminotransferase 23 U/L (6-35); Albumin Level 2.8 g/dL (3.5-5.1); Alkaline Phosphatase 84 U/L (38-126); Anion Gap 6 mmol/L (4-12); Aspartate Amino Transferase 23 U/L (14-36); Bilirubin,Total 0.2 mg/dL (0.2-1.3); Blood Urea Nitrogen 30 mg/dL (7-17); Calcium 8.8 mg/dL (8.4-10.2); Carbon Dioxide 30 mmol/L (22-30); Chloride 104 mmol/L (98-107); Estimated CRCL calculation 59 ml/min; Estimated Glomerular Filt Rate > 60; Glucose 151 mg/dL (65-110); Magnesium 1.6 mg/dL (1.6-2.3); Potassium 3.3 mmol/L (3.4-5.0); Sodium 140 mmol/L (137-145)
[2024-01-16 08:12] LABS: Glucose Point of Care 139 mg/dl (65-105)
--- NOTE | 2024-01-16 08:39 | PM.IMPN ---
Progress Note: A&P Assessment and Plan (1) Shortness of breath: Code(s): R06.02 - Shortness of breath Status: Acute Assessment and Plan: - chest CT: Small bilateral pleural effusions with mild bibasilar atelectatic change. Minimal pericardial fluid. Enlarged thyroid gland, with suggestion of multiple nodules. Consider thyroid ultrasound and/or thyroid function testing, as indicated. - CXR: Suspected hazy a retro cardiac airspace disease, correlate for lower lobe pneumonia versus atelectasis. - upon my review of CT, small consolidation to left lower lobe. given patient is symptomatic (subjective fevers, cough, shortness of breath) will start CPAP treatment, ceftriaxone azithromycin on 01/13. did not meet SIRS criteria (HR only). will add MRSA PCR given patient is [place] resident. follow BC. - suspect SOB is multifactorial: CHF and PNA 01/15/24: Continue Rocephin and Azithromycin. Continue Lasix 40 mg IVP Daily. 01/15 will add mucinex prn continue antibiotics (2) Elevated brain natriuretic peptide (BNP) level: Code(s): R79.89 - Other specified abnormal findings of blood chemistry Status: Acute Assessment and Plan: - BNP 6350 - no echo on file, ordered - not on diuretic, will start Lasix 40 mg IVP daily - daily weights and monitor I&Os - trend renal function 01/15/24: ECHO 01/14/24 showing mildly reduces LVSF w/EF of 45-50%. LVDF is indeterminate. Continue Lasix 40 mg IVP daily Monitor labs and VS. Pt still appears to be hypervolemic with BLE edema, R>L 01/15- monitor I/O will consider Jardiance for chf upon discharge (3) Atrial fibrillation: Qualifiers: Atrial fibrillation type: unspecified Qualified Code(s): I48.91 - Unspecified atrial fibrillation Code(s): I48.91 - Unspecified atrial fibrillation Status: Acute Assessment and Plan: - EKG, initial: Sinus rhythm, rate 92, possible left atrial enlargement, borderline ST-T-wave abnormality diffuse leads, baseline artifact. - EKG, repeat (1): AFib RVR, rate 131, nonspecific ST and T-wave abnormality diffuse leads. When compared to EKG done earlier today there is AFib now present. - Troponin: 0.019 -> 0.012 - rate controlled post metoprolol IVP and oral doses, heart rate remains 100-115. Will give home amiodarone dose now, did not take this morning due to being at the emergency department. - home medications: Amiodarone 100 mg daily - telemetry monitoring 01/15/24: Continue tele. Continue meds for rate control and rhythm Continue Coumadin for anticoagulation 01/15- continue therapy (4) Edema of extremity: Code(s): R60.0 - Localized edema Status: Acute Assessment and Plan: - recent dislocation to right shoulder, during reduction patient had fracture of right humerus. Reports she had to have surgery at [facility] approximately 2 weeks ago. Right upper extremity has been swollen since then, patient is on Eliquis. However will order ultrasound of the RUE after shared decision making with patient. - patient also having it right lower extremity edema, reports that has been present since her shoulders location. The patient had ultrasound done of RLE at [facility], will request records. - continue Eliquis - DVT verses peripheral edema secondary to suspected new CHF 01/15/24: Pt continues to have RLE edema R>L. She had negative dopplers there a couple of weeks ago, but has been mostly sedentary since. Repeat Venous doppler RLE to rule out DVT. Continue diuresis. (5) Diabetes: Qualifiers: Diabetes mellitus complication status: without complication Diabetes mellitus termite treater insulin use: without alf use Diabetes mellitus type: type 2 Qualified Code(s): E11.9 - Type 2 diabetes mellitus without complications Code(s): E11.9 - Type 2 diabetes mellitus without complications Status: Chronic Assessment and Plan: - hypoglycemia protocol - POC blood glucose ACHS - h
[2024-01-16] MEDS: AZITHROMYCIN 500 MG/NS 250 ML 500 MG/250 ML BAG 250 MG IVPB (08:42)
[2024-01-16] MEDS: BACLOFEN 10 MG TABLET 20 MG PO ×3 (09:46→17:04)
[2024-01-16] MEDS: amLODIPine BESYLATE 5 MG TABLET PO (09:46)
[2024-01-16] MEDS: carvediloL 6.25 MG TABLET PO ×2 (09:46→20:10)
[2024-01-16] MEDS: FUROSEMIDE INJ 40 MG/4 ML VIAL IV PUSH (09:47)
[2024-01-16] MEDS: COLLAGENASE OINT 30 GM TUBE 1 APPLIC TOPICAL (09:47)
[2024-01-16] MEDS: FLUoxetine HCL 20 MG CAPSULE PO (09:47)
[2024-01-16] MEDS: AMIODARONE HCL 100 MG TABLET PO (09:47)
[2024-01-16] MEDS: POTASSIUM CHLORIDE 20 MEQ PACKET (FOR LIQUID) 40 MEQ PO (09:53)
[2024-01-16] MEDS: MAGNESIUM OXIDE 400 MG TABLET PO (09:53)
[2024-01-16] MEDS: BENZONATATE 100 MG CAPSULE 200 MG PO ×2 (10:37→20:11)
[2024-01-16 11:24] LABS: T3 Free 10.3 pg/mL (2.3-4.2)
[2024-01-16 13:14] LABS: Glucose Point of Care 166 mg/dl (65-105)
[2024-01-16 17:01] LABS: Glucose Point of Care 231 mg/dl (65-105)
[2024-01-16] MEDS: WARFARIN (*PBKC) 5 MG TABLET PO (17:04)
[2024-01-16 17:13] LABS: Glucose Point of Care 117 mg/dl (65-105)
[2024-01-16] MEDS: traZODone HCL 25 MG TABLET 75 MG PO (20:10)
[2024-01-16] MEDS: guaiFENesin 12 HR 600 MG TABCR PO (20:11)
[2024-01-16] MEDS: ATORVASTATIN 40 MG TABLET PO (20:11)
[2024-01-16 20:47] LABS: Glucose Point of Care 169 mg/dl (65-105)
[2024-01-17] VITALS (14 sets, daily range): BP systolic 111–155; BP diastolic 61–66; PULSE 71–87; RESP 16–22; TEMP 36.3–37; O2SAT 93–99
[2024-01-17 05:03] LABS: Prothrombin Time 23.1 Seconds (11.1-14.7)
[2024-01-17 07:53] LABS: Glucose Point of Care 122 mg/dl (65-105)
[2024-01-17] MEDS: BENZONATATE 100 MG CAPSULE 200 MG PO ×2 (08:24→20:21)
[2024-01-17] MEDS: AMIODARONE HCL 100 MG TABLET PO (08:25)
[2024-01-17] MEDS: AZITHROMYCIN 500 MG/NS 250 ML 500 MG/250 ML BAG 250 MG IVPB (08:26)
[2024-01-17] MEDS: amLODIPine BESYLATE 5 MG TABLET PO (08:26)
[2024-01-17] MEDS: BACLOFEN 10 MG TABLET 20 MG PO ×3 (08:30→16:52)
[2024-01-17] MEDS: carvediloL 6.25 MG TABLET PO ×2 (08:30→20:21)
[2024-01-17] MEDS: MAGNESIUM OXIDE 400 MG TABLET PO (08:31)
[2024-01-17] MEDS: POTASSIUM CHLORIDE 20 MEQ PACKET (FOR LIQUID) 40 MEQ PO (08:31)
[2024-01-17] MEDS: FUROSEMIDE INJ 40 MG/4 ML VIAL IV PUSH (08:31)
[2024-01-17] MEDS: FLUoxetine HCL 20 MG CAPSULE PO (08:31)
[2024-01-17] MEDS: guaiFENesin 12 HR 600 MG TABCR PO ×2 (08:31→20:21)
--- NOTE | 2024-01-17 08:37 | PM.IMPN ---
Progress Note: A&P Assessment and Plan (1) Shortness of breath: Code(s): R06.02 - Shortness of breath Status: Acute Assessment and Plan: - chest CT: Small bilateral pleural effusions with mild bibasilar atelectatic change. Minimal pericardial fluid. Enlarged thyroid gland, with suggestion of multiple nodules. Consider thyroid ultrasound and/or thyroid function testing, as indicated. - CXR: Suspected hazy a retro cardiac airspace disease, correlate for lower lobe pneumonia versus atelectasis. - upon my review of CT, small consolidation to left lower lobe. given patient is symptomatic (subjective fevers, cough, shortness of breath) will start CPAP treatment, ceftriaxone azithromycin on 01/13. did not meet SIRS criteria (HR only). will add MRSA PCR given patient is [place] resident. follow BC. - suspect SOB is multifactorial: CHF and PNA 01/15/24: Continue Rocephin and Azithromycin. Continue Lasix 40 mg IVP Daily. 01/15 will add mucinex prn continue antibiotics 01/16- vest therapy per resp- ordered duonebs prn - legionella, mycoplasma ordered-pending (2) Elevated brain natriuretic peptide (BNP) level: Code(s): R79.89 - Other specified abnormal findings of blood chemistry Status: Acute Assessment and Plan: - BNP 6350 - no echo on file, ordered - not on diuretic, will start Lasix 40 mg IVP daily - daily weights and monitor I&Os - trend renal function 01/15/24: ECHO 01/14/24 showing mildly reduces LVSF w/EF of 45-50%. LVDF is indeterminate. Continue Lasix 40 mg IVP daily Monitor labs and VS. Pt still appears to be hypervolemic with BLE edema, R>L 01/15- monitor I/O will consider Jardiance for chf upon discharge 01/16- coreg, lasix- monitor I/O (3) Atrial fibrillation: Qualifiers: Atrial fibrillation type: unspecified Qualified Code(s): I48.91 - Unspecified atrial fibrillation Code(s): I48.91 - Unspecified atrial fibrillation Status: Acute Assessment and Plan: - EKG, initial: Sinus rhythm, rate 92, possible left atrial enlargement, borderline ST-T-wave abnormality diffuse leads, baseline artifact. - EKG, repeat (1): AFib RVR, rate 131, nonspecific ST and T-wave abnormality diffuse leads. When compared to EKG done earlier today there is AFib now present. - Troponin: 0.019 -> 0.012 - rate controlled post metoprolol IVP and oral doses, heart rate remains 100-115. Will give home amiodarone dose now, did not take this morning due to being at the emergency department. - home medications: Amiodarone 100 mg daily - telemetry monitoring 01/15/24: Continue tele. Continue meds for rate control and rhythm Continue Coumadin for anticoagulation 01/15- continue therapy 01/16- INR-2 - continue (4) Edema of extremity: Code(s): R60.0 - Localized edema Status: Acute Assessment and Plan: - recent dislocation to right shoulder, during reduction patient had fracture of right humerus. Reports she had to have surgery at [facility] approximately 2 weeks ago. Right upper extremity has been swollen since then, patient is on Eliquis. However will order ultrasound of the RUE after shared decision making with patient. - patient also having it right lower extremity edema, reports that has been present since her shoulders location. The patient had ultrasound done of RLE at [facility], will request records. - continue Eliquis - DVT verses peripheral edema secondary to suspected new CHF Pt continues to have RLE edema R>L. She had negative dopplers there a couple of weeks ago, but has been mostly sedentary since. Repeat Venous doppler RLE to rule out DVT. Continue diuresis. (5) Diabetes: Qualifiers: Diabetes mellitus complication status: without complication Diabetes mellitus jail insulin use: without customer service officer use Diabetes mellitus type: type 2 Qualified Code(s): E11.9 - Type 2 diabetes mellitus without complications Code(s): E11.9 - Type 2 diabetes mariana
[2024-01-17 09:41] LABS: Hematocrit 29.2 % (37.0-47.0); Hemoglobin 8.9 g/dL (12.0-15.0); Mean Corpuscular HGB Conc 30.5 g/dl (32-36); Mean Corpuscular Hemoglobin 29.3 pg (26-34); Mean Corpuscular Volume 96.1 fl (80-100); Mean Platelet Volume 9.5 fl (7.4-10.4); Platelet Count Result 310 k/mm3 (150-375); Red Blood Count 3.04 M/mm3 (4.2-5.4); Red Cell Distribution Width 13.3 % (11.5-14.5); White Blood Count 4.5 K/mm3 (4.5-10.0)
[2024-01-17 09:53] LABS: Anion Gap 7 mmol/L (4-12); Blood Urea Nitrogen 41 mg/dL (7-17); Calcium 9.4 mg/dL (8.4-10.2); Carbon Dioxide 30 mmol/L (22-30); Chloride 102 mmol/L (98-107); Estimated CRCL calculation 54 ml/min; Estimated Glomerular Filt Rate 58; Glucose 124 mg/dL (65-110); Potassium 3.7 mmol/L (3.4-5.0); Sodium 139 mmol/L (137-145)
[2024-01-17] MEDS: IPRATROPIUM 0.5 MG/ALBUTEROL SULFATE 2.5 MG AMPUL.NEB 3 ML INHALATION (09:57)
[2024-01-17] MEDS: ACETAMINOPHEN 325 MG TABLET 650 MG PO ×2 (11:59→20:20)
[2024-01-17] MEDS: COLLAGENASE OINT 30 GM TUBE 1 APPLIC TOPICAL (12:01)
[2024-01-17 12:04] LABS: Glucose Point of Care 210 mg/dl (65-105)
[2024-01-17] MEDS: INSULIN ASPART (*BKC) 100 UNITS/ML SUB-Q (12:05)
[2024-01-17] MEDS: WARFARIN (*PBKC) 5 MG TABLET PO (16:53)
[2024-01-17 17:01] LABS: Glucose Point of Care 120 mg/dl (65-105)
[2024-01-17] MEDS: ATORVASTATIN 40 MG TABLET PO (20:21)
[2024-01-17] MEDS: traZODone HCL 25 MG TABLET 75 MG PO (20:21)
[2024-01-17 21:12] LABS: Glucose Point of Care 194 mg/dl (65-105)
[2024-01-18] VITALS (7 sets, daily range): BP systolic 103–139; BP diastolic 50–76; PULSE 73–88; RESP 16; TEMP 36.3–36.5; O2SAT 94–98
[2024-01-18 06:12] LABS: Hematocrit 26.8 % (37.0-47.0); Hemoglobin 8.4 g/dL (12.0-15.0); Mean Corpuscular HGB Conc 31.3 g/dl (32-36); Mean Corpuscular Hemoglobin 29.6 pg (26-34); Mean Corpuscular Volume 94.4 fl (80-100); Mean Platelet Volume 9.3 fl (7.4-10.4); Platelet Count Result 286 k/mm3 (150-375); Red Blood Count 2.84 M/mm3 (4.2-5.4); Red Cell Distribution Width 13.2 % (11.5-14.5); White Blood Count 3.9 K/mm3 (4.5-10.0)
[2024-01-18 06:22] LABS: INR 2.5; Prothrombin Time 27.1 Seconds (11.1-14.7)
[2024-01-18 06:25] LABS: Anion Gap 6 mmol/L (4-12); Blood Urea Nitrogen 52 mg/dL (7-17); Carbon Dioxide 33 mmol/L (22-30); Chloride 102 mmol/L (98-107); Estimated CRCL calculation 42 ml/min; Estimated Glomerular Filt Rate 43; Glucose 137 mg/dL (65-110); Potassium 3.8 mmol/L (3.4-5.0); Sodium 141 mmol/L (137-145)
--- NOTE | 2024-01-18 07:31 | PM.DS ---
DS: Admitting Diagnosis Discharge Date 01/18/2024 0830 Admitting Diagnosis New onset CHF DS: Discharge Diagnosis Discharge Diagnosis (1) Shortness of breath: Code(s): R06.02 - Shortness of breath Status: Acute Assessment and Plan: - chest CT: Small bilateral pleural effusions with mild bibasilar atelectatic change. Minimal pericardial fluid. Enlarged thyroid gland, with suggestion of multiple nodules. Consider thyroid ultrasound and/or thyroid function testing, as indicated. - CXR: Suspected hazy a retro cardiac airspace disease, correlate for lower lobe pneumonia versus atelectasis. - upon my review of CT, small consolidation to left lower lobe. given patient is symptomatic (subjective fevers, cough, shortness of breath) will start CPAP treatment, ceftriaxone azithromycin on 01/13. did not meet SIRS criteria (HR only). will add MRSA PCR given patient is [place] resident. follow BC. - suspect SOB is multifactorial: CHF and PNA 01/15/24: Continue Rocephin and Azithromycin. Continue Lasix 40 mg IVP Daily. 01/15 will add mucinex prn continue antibiotics 01/16- vest therapy per resp- ordered duonebs prn - legionella, mycoplasma ordered-pending (2) Elevated brain natriuretic peptide (BNP) level: Code(s): R79.89 - Other specified abnormal findings of blood chemistry Status: Acute Assessment and Plan: - BNP 6350 - no echo on file, ordered - not on diuretic, will start Lasix 40 mg IVP daily - daily weights and monitor I&Os - trend renal function 01/15/24: ECHO 01/14/24 showing mildly reduces LVSF w/EF of 45-50%. LVDF is indeterminate. Continue Lasix 40 mg IVP daily Monitor labs and VS. Pt still appears to be hypervolemic with BLE edema, R>L 01/15- monitor I/O will consider Jardiance for chf upon discharge 01/16- coreg, lasix- monitor I/O (3) Atrial fibrillation: Qualifiers: Atrial fibrillation type: unspecified Qualified Code(s): I48.91 - Unspecified atrial fibrillation Code(s): I48.91 - Unspecified atrial fibrillation Status: Acute Assessment and Plan: - EKG, initial: Sinus rhythm, rate 92, possible left atrial enlargement, borderline ST-T-wave abnormality diffuse leads, baseline artifact. - EKG, repeat (1): AFib RVR, rate 131, nonspecific ST and T-wave abnormality diffuse leads. When compared to EKG done earlier today there is AFib now present. - Troponin: 0.019 -> 0.012 - rate controlled post metoprolol IVP and oral doses, heart rate remains 100-115. Will give home amiodarone dose now, did not take this morning due to being at the emergency department. - home medications: Amiodarone 100 mg daily - telemetry monitoring 01/15/24: Continue tele. Continue meds for rate control and rhythm Continue Coumadin for anticoagulation 01/15- continue therapy 01/16- INR-2 - continue (4) Edema of extremity: Code(s): R60.0 - Localized edema Status: Acute Assessment and Plan: - recent dislocation to right shoulder, during reduction patient had fracture of right humerus. Reports she had to have surgery at [facility] approximately 2 weeks ago. Right upper extremity has been swollen since then, patient is on Eliquis. However will order ultrasound of the RUE after shared decision making with patient. - patient also having it right lower extremity edema, reports that has been present since her shoulders location. The patient had ultrasound done of RLE at [facility], will request records. - continue Eliquis - DVT verses peripheral edema secondary to suspected new CHF Pt continues to have RLE edema R>L. She had negative dopplers there a couple of weeks ago, but has been mostly sedentary since. Repeat Venous doppler RLE to rule out DVT. Continue diuresis. (5) Diabetes: Qualifiers: Diabetes mellitus complication status: without complication Diabetes mellitus rat exterminator insulin use: without rat exterminator use Diabetes mellitus type: type 2 Qualified Code(s):
[2024-01-18 07:51] LABS: Glucose Point of Care 129 mg/dl (65-105)
[2024-01-18] MEDS: FLUoxetine HCL 20 MG CAPSULE PO (08:38)
[2024-01-18] MEDS: MAGNESIUM OXIDE 400 MG TABLET PO (08:38)
[2024-01-18] MEDS: guaiFENesin 12 HR 600 MG TABCR PO (08:39)
[2024-01-18] MEDS: BACLOFEN 10 MG TABLET 20 MG PO (08:39)
[2024-01-18] MEDS: amLODIPine BESYLATE 5 MG TABLET PO (08:39)
[2024-01-18] MEDS: COLLAGENASE OINT 30 GM TUBE 1 APPLIC TOPICAL (08:39)
[2024-01-18] MEDS: carvediloL 6.25 MG TABLET PO (08:39)
[2024-01-18] MEDS: POTASSIUM CHLORIDE 20 MEQ PACKET (FOR LIQUID) 40 MEQ PO (08:39)
[2024-01-18] MEDS: AMIODARONE HCL 100 MG TABLET PO (08:39)
[2024-01-18] MEDS: FUROSEMIDE INJ 40 MG/4 ML VIAL IV PUSH (08:40)
[2024-01-18] MEDS: ACETAMINOPHEN 325 MG TABLET 650 MG PO (08:45)
[2024-01-18 11:21] LABS: SARS-CoV-2 RNA PCR Negative (Negative)
[2024-01-18 12:20] LABS: Glucose Point of Care 192 mg/dl (65-105)
[2024-01-20 21:38] LABS: Pneumococcal Antigen Urine NOT DETECTED
[2024-02-02 02:38] LABS: Legionella pneumophila Ag Ur NOT DETECTED
== END 2024-01-18 13:15 | DRG 194 ==
LOC: ANHED 01-14 07:58 → ANH3MEDSUR 01-14 08:42 → ANH2MED 01-14 09:00
PROVIDERS: Nurse Practitioner; Nurse Practitioner Adult Health; Student in an Organized Health Care Education/Training Program; Admitting Provider Internal Medicine; Emergency Provider Emergency Medicine; PCP Family Medicine; Visit Provider Nurse Practitioner
DX: I11.0 Hypertensive heart disease with heart failure (principal); I50.9 Heart failure, unspecified; I48.91 Unspecified atrial fibrillation; E11.9 Type 2 diabetes mellitus without complications; E78.5 Hyperlipidemia, unspecified; E87.6 Hypokalemia; E05.90 Thyrotoxicosis, unspecified without thyrotoxic crisis or storm; I69.351 Hemiplegia and hemiparesis following cerebral infarction affecting right dominant side; R79.89 Other specified abnormal findings of blood chemistry; Z11.52 Encounter for screening for COVID-19; Z20.822 Contact with and (suspected) exposure to COVID-19; Z85.42 Personal history of malignant neoplasm of other parts of uterus; Z79.01 Long term (current) use of anticoagulants; Z79.84 Long term (current) use of oral hypoglycemic drugs
CPT/HCPCS: 36415; 71045; 71250; 73030; 80048; 80053; 81003; 82803; 82948; 83036; 83735; 83880; 84439; 84443; 84480; 84484; 85025; 85027; 85610; 85730; 86738; 87040; 87449; 87635; 87637; 87641; 87899; 93005; 93306; 93971; 94640; 96374; 97162; 97165; 97535; 99285; A9270; J0456; J0696; J1815; J1940; J3480; J7040